=== PATIENT | female | born 1990 | race Caucasian/White ===

== ENCOUNTER 2016-10-03 02:20 | Emergency (ER) | payer SELFPAY ==
[~2016-10-03] VITALS: Ht 167.6 cm; Wt 56.7 kg
[2016-10-03 02:25] VITALS: BP 124/72; PULSE 84; RESP 16; TEMP 97.8; O2SAT 100
--- NOTE | 2016-10-03 02:25 | NUR ---
Patient to ER bed 4 for evaluation. Side rails up. Report given to Rosales BRUSH.
--- NOTE | 2016-10-03 02:25 | NUR ---
Pt is here for medical clearance. Pt admitted to heroin use yesterday at 1999. Pt is resting comfortably. Pt states she is in no pain or discomfort. Will continue to monitor. AAOx4. No distress noted.
--- NOTE | 2016-10-03 02:30 | NUR ---
ER Dr. Salguero at bedside examining patient.
[2016-10-03 02:40] VITALS: BP 124/72; PULSE 84; RESP 16; TEMP 97.8; O2SAT 100
--- NOTE | 2016-10-03 02:40 | NUR ---
Patient given written and verbal discharge instructions and verbalizes understanding. ER MD discussed with patient the results and treatment provided. Patient in stable condition. ID arm band removed.. Patient educated on pain management and to follow up with PMD. Pain Scale 0/10. Opportunity for questions provided and answered.
== END 2016-10-03 02:40 ==
LOC: SED 02:20
DX: Z02.89 Encounter for other administrative examinations (principal); F11.10 Opioid abuse, uncomplicated
CPT/HCPCS: 99283